=== PATIENT | male | born 1955 | race Caucasian/White ===

== ENCOUNTER 2018-04-12 02:23 | Inpatient (IN) | payer OTHER ==
[2018-04-12 03:35] LABS: ADD MAN DIFF? NO
[2018-04-12] MEDS: FAMOTIDINE 20 MG TAB PO (03:36)
[2018-04-12] MEDS: LIDOCAINE/MYLANTA 40 ML BTL PO (03:36)
[2018-04-12] MEDS: KETOROLAC 15 MG INJ IV (03:36)
[2018-04-12] MEDS: SOD CHLORIDE 0.9% 1,000 ML IV ×2 (03:36→06:37)
[2018-04-12] MEDS: BELLADONNA/PHENOBARBITAL TAB PO (03:36)
[2018-04-12 03:42] LABS: ALANINE AMINOTRANSFERASE 308 IU/L (13-69); ALBUMIN 4.2 g/dl (3.3-4.9); ALBUMIN/GLOBULIN RATIO 1.16; ALKALINE PHOSPHATASE 163 IU/L (42-121); ANION GAP 14 (8-16); ASPARTATE AMINO TRANSFERASE 514 IU/L (15-46); BILIRUBIN,INDIRECT 0.9 mg/dl (0-1.1); BILIRUBIN,TOTAL 1.5 mg/dl (0.2-1.3); BLOOD UREA NITROGEN 10 mg/dl (7-20); CALCIUM 8.9 mg/dl (8.4-10.2); CARBON DIOXIDE 26 mmol/L (21-31); CHLORIDE 108 mmol/L (97-110); CREATININE 0.91 mg/dl (0.61-1.24); GLUCOSE 134 mg/dl (70-220); LIPASE 223 U/L (23-300); POTASSIUM 3.6 mmol/L (3.5-5.1); SODIUM 144 mmol/L (135-144); TOTAL PROTEIN 7.8 g/dl (6.1-8.1)
[2018-04-12 03:55] LABS: TROPONIN-I < 0.012 ng/ml (0.000-0.120)
[2018-04-12 04:08] LABS: BASOPHILS % 0.3 % (0.0-2.0); EOSINOPHILS # 0.1 10^3/ul (0.0-0.5); EOSINOPHILS % 1.2 % (0.0-7.0); HEMATOCRIT 42.7 % (42.0-52.0); HEMOGLOBIN 14.4 g/dl (14.0-18.0); LYMPHOCYTES # 1.8 10^3/ul (0.8-2.9); LYMPHOCYTES % 27.6 % (15.0-51.0); MEAN CORPUSCULAR HEMOGLOBIN 29.9 pg (29.0-33.0); MEAN CORPUSCULAR HGB CONC 33.7 g/dl (32.0-37.0); MEAN CORPUSCULAR VOLUME 88.8 fl (82.0-101.0); MEAN PLATELET VOLUME 9.5 fl (7.4-10.4); MONOCYTE # 0.7 10^3/ul (0.3-0.9); MONOCYTES % 10.9 % (0.0-11.0); NEUTROPHILS % 59.6 % (39.0-77.0); PLATELET COUNT 328 10^3/UL (140-415); RED BLOOD COUNT 4.81 10^6/ul (4.70-6.10); RED CELL DISTRIBUTION WIDTH 12.6 % (11.5-14.5)
[2018-04-12 04:08] LABS: WHITE BLOOD COUNT 6.7 10^3/ul (4.8-10.8)
[2018-04-12] MEDS: PIPER-TAZO 3.375 GM IV (PMX) 100 ML IVPB ×4 (05:18→23:25)
[2018-04-12] MEDS ORDERED: ACETAMINOPHEN 325 MG TAB PO (06:00)
[2018-04-12] MEDS ORDERED: NACL 0.9% 3 ML SYG IV (06:00)
[2018-04-12] MEDS ORDERED: BISACODYL (EC) 5 MG TAB PO (06:00)
[2018-04-12] MEDS ORDERED: DOCUSATE SODIUM 100 MG CAP PO (06:00)
[2018-04-12 06:05] LABS: INR 1.03; PROTIME 13.6 Sec (11.9-14.9); PT RATIO 1.1
[2018-04-12] MEDS ORDERED: PANTOPRAZOLE 40 MG INJ IV (11:00)
[2018-04-12] MEDS: DEXTROSE 5%-0.45% NACL 1,000 ML IV ×2 (11:44→15:10)
[2018-04-12] MEDS: PANTOPRAZOLE 40 MG INJ IV (11:48)
[2018-04-12] MEDS: INDOMETHACIN 50 MG SUPP PR (16:30)
[2018-04-13] MEDS: DEXTROSE 5%-0.45% NACL 1,000 ML IV ×2 (05:58→17:00)
[2018-04-13] MEDS: PANTOPRAZOLE 40 MG INJ IV (05:59)
[2018-04-13] MEDS: PIPER-TAZO 3.375 GM IV (PMX) 100 ML IVPB ×3 (05:59→17:28)
[2018-04-13 06:22] LABS: ADD MAN DIFF? NO
[2018-04-13 06:26] LABS: WHITE BLOOD COUNT 3.5 10^3/ul (4.8-10.8)
[2018-04-13 06:26] LABS: ABNORMAL IP MESSAGE 1; BASOPHIL # 0.1 10^3/ul (0.0-0.1); BASOPHILS % 1.4 % (0.0-2.0); EOSINOPHILS # 0.3 10^3/ul (0.0-0.5); EOSINOPHILS % 8.4 % (0.0-7.0); HEMATOCRIT 39.1 % (42.0-52.0); HEMOGLOBIN 12.9 g/dl (14.0-18.0); LYMPHOCYTES % 58.7 % (15.0-51.0); MEAN CORPUSCULAR HEMOGLOBIN 29.7 pg (29.0-33.0); MEAN CORPUSCULAR VOLUME 89.9 fl (82.0-101.0); MEAN PLATELET VOLUME 9.7 fl (7.4-10.4); MONOCYTE # 0.3 10^3/ul (0.3-0.9); MONOCYTES % 9.8 % (0.0-11.0); NEUTROPHIL # 0.8 10^3/ul (1.6-7.5); NEUTROPHILS % 21.7 % (39.0-77.0); PLATELET COUNT 270 10^3/UL (140-415); POSITIVE DIFF @See below; RED BLOOD COUNT 4.35 10^6/ul (4.70-6.10)
[2018-04-13 06:54] LABS: ALANINE AMINOTRANSFERASE 284 IU/L (13-69); ALBUMIN 3.4 g/dl (3.3-4.9); ALBUMIN/GLOBULIN RATIO 1.21; ANION GAP 11 (8-16); BILIRUBIN,INDIRECT 0.7 mg/dl (0-1.1); BILIRUBIN,TOTAL 0.7 mg/dl (0.2-1.3); BLOOD UREA NITROGEN 5 mg/dl (7-20); CALCIUM 8.6 mg/dl (8.4-10.2); CARBON DIOXIDE 27 mmol/L (21-31); CHLORIDE 110 mmol/L (97-110); CHOL/HDL RATIO 3.3 RATIO; CHOLESTEROL 141 mg/dl (100-200); CREATININE 0.98 mg/dl (0.61-1.24); GLUCOSE 106 mg/dl (70-220); HDL CHOLESTEROL 42 mg/dl (30-78); LDL CHOLESTEROL,CALCULATED 82 mg/dl; SODIUM 144 mmol/L (135-144); TOTAL PROTEIN 6.2 g/dl (6.1-8.1); TRIGLYCERIDES 83 mg/dl (0-149)
[2018-04-13 06:59] LABS: HEMOGLOBIN A1C 6.2 % (0-5.9)
[2018-04-13 06:59] LABS: ALKALINE PHOSPHATASE 142 IU/L (42-121); ASPARTATE AMINO TRANSFERASE 184 IU/L (15-46)
[2018-04-13 07:19] LABS: HEPATITIS B SURFACE ANTIGEN NEGATIVE (NEGATIVE)
[2018-04-13 07:30] LABS: MAGNESIUM 2.6 mg/dl (1.7-2.5)
[2018-04-13 07:36] LABS: HEPATITIS C VIRAL ANTIBODY NEGATIVE (NEGATIVE)
[2018-04-13 07:36] LABS: HEPATITIS B SURFACE ANTIBODY NEGATIVE (NEGATIVE)
[2018-04-13] MEDS: INDOMETHACIN 50 MG SUPP PR (19:30)
[2018-04-13] MEDS ORDERED: MIDAZOLAM 1 MG/ML 2 ML INJ (19:50)
[2018-04-13] MEDS ORDERED: LIDOCAINE 2% (SDV) 5 ML INJ (19:50)
[2018-04-13] MEDS ORDERED: FENTAnyl 50 MCG/ML VIAL (19:50)
[2018-04-13] MEDS ORDERED: PROPOFOL 20 ML (19:50)
[2018-04-13] MEDS ORDERED: GLYCOPYRROLATE 0.4 MG INJ (21:03)
[2018-04-13] MEDS ORDERED: ROCURONIUM 50 MG INJ (21:03)
[2018-04-13] MEDS ORDERED: NEOSTIGMINE 3 MG/3 ML SYRINGE (21:03)
[2018-04-13] MEDS ORDERED: ONDANSETRON 4 MG INJ (21:03)
[2018-04-13] MEDS: HYDROmorphONE 0.5 MG/0.5 ML SYG IV (22:55)
[2018-04-14] MEDS: PIPER-TAZO 3.375 GM IV (PMX) 100 ML IVPB ×4 (00:03→17:29)
[2018-04-14] MEDS: PANTOPRAZOLE 40 MG INJ IV (05:44)
[2018-04-14] MEDS: DEXTROSE 5%-0.45% NACL 1,000 ML IV (05:44)
[2018-04-14 06:29] LABS: ADD MAN DIFF? NO
[2018-04-14 06:39] LABS: BASOPHILS % 0.5 % (0.0-2.0); EOSINOPHILS # 0.2 10^3/ul (0.0-0.5); EOSINOPHILS % 3.3 % (0.0-7.0); HEMATOCRIT 38.2 % (42.0-52.0); HEMOGLOBIN 12.8 g/dl (14.0-18.0); LYMPHOCYTES # 2.2 10^3/ul (0.8-2.9); LYMPHOCYTES % 38.4 % (15.0-51.0); MEAN CORPUSCULAR HGB CONC 33.5 g/dl (32.0-37.0); MEAN CORPUSCULAR VOLUME 89.7 fl (82.0-101.0); MEAN PLATELET VOLUME 9.4 fl (7.4-10.4); MONOCYTE # 0.6 10^3/ul (0.3-0.9); MONOCYTES % 9.8 % (0.0-11.0); NEUTROPHIL # 2.7 10^3/ul (1.6-7.5); NEUTROPHILS % 47.8 % (39.0-77.0); PLATELET COUNT 260 10^3/UL (140-415); RED BLOOD COUNT 4.26 10^6/ul (4.70-6.10); RED CELL DISTRIBUTION WIDTH 12.6 % (11.5-14.5)
[2018-04-14 06:39] LABS: WHITE BLOOD COUNT 5.7 10^3/ul (4.8-10.8)
[2018-04-14 07:04] LABS: MAGNESIUM 2.4 mg/dl (1.7-2.5)
[2018-04-14 07:13] LABS: ALANINE AMINOTRANSFERASE 191 IU/L (13-69); ALBUMIN 3.3 g/dl (3.3-4.9); ALBUMIN/GLOBULIN RATIO 1.32; ALKALINE PHOSPHATASE 114 IU/L (42-121); ANION GAP 15 (8-16); ASPARTATE AMINO TRANSFERASE 71 IU/L (15-46); BILIRUBIN,INDIRECT 0.5 mg/dl (0-1.1); BILIRUBIN,TOTAL 0.5 mg/dl (0.2-1.3); BLOOD UREA NITROGEN 8 mg/dl (7-20); CALCIUM 8.2 mg/dl (8.4-10.2); CARBON DIOXIDE 27 mmol/L (21-31); CHLORIDE 105 mmol/L (97-110); CREATININE 0.99 mg/dl (0.61-1.24); GLUCOSE 120 mg/dl (70-220); POTASSIUM 3.8 mmol/L (3.5-5.1); SODIUM 143 mmol/L (135-144); TOTAL PROTEIN 5.8 g/dl (6.1-8.1)
[2018-04-14] MEDS: HYDROmorphONE 0.5 MG/0.5 ML SYG IV (19:55)
[2018-04-15] MEDS: PIPER-TAZO 3.375 GM IV (PMX) 100 ML IVPB ×4 (00:02→18:23)
[2018-04-15] MEDS: PANTOPRAZOLE 40 MG INJ IV (05:28)
[2018-04-15 06:32] LABS: ADD MAN DIFF? NO
[2018-04-15 06:34] LABS: WHITE BLOOD COUNT 5.2 10^3/ul (4.8-10.8)
[2018-04-15 06:34] LABS: BASOPHILS % 0.6 % (0.0-2.0); EOSINOPHILS # 0.3 10^3/ul (0.0-0.5); EOSINOPHILS % 4.8 % (0.0-7.0); HEMATOCRIT 38.2 % (42.0-52.0); HEMOGLOBIN 12.6 g/dl (14.0-18.0); LYMPHOCYTES # 2.6 10^3/ul (0.8-2.9); LYMPHOCYTES % 49.3 % (15.0-51.0); MEAN CORPUSCULAR HEMOGLOBIN 29.6 pg (29.0-33.0); MEAN CORPUSCULAR VOLUME 89.7 fl (82.0-101.0); MEAN PLATELET VOLUME 9.6 fl (7.4-10.4); MONOCYTE # 0.4 10^3/ul (0.3-0.9); MONOCYTES % 7.5 % (0.0-11.0); NEUTROPHILS % 37.6 % (39.0-77.0); PLATELET COUNT 262 10^3/UL (140-415); RED BLOOD COUNT 4.26 10^6/ul (4.70-6.10); RED CELL DISTRIBUTION WIDTH 12.9 % (11.5-14.5)
[2018-04-15 06:55] LABS: ALANINE AMINOTRANSFERASE 142 IU/L (13-69); ALBUMIN 3.2 g/dl (3.3-4.9); ALBUMIN/GLOBULIN RATIO 1.14; ALKALINE PHOSPHATASE 114 IU/L (42-121); ANION GAP 11 (8-16); ASPARTATE AMINO TRANSFERASE 39 IU/L (15-46); BILIRUBIN,INDIRECT 0.5 mg/dl (0-1.1); BILIRUBIN,TOTAL 0.5 mg/dl (0.2-1.3); BLOOD UREA NITROGEN 6 mg/dl (7-20); CALCIUM 8.8 mg/dl (8.4-10.2); CARBON DIOXIDE 27 mmol/L (21-31); CHLORIDE 109 mmol/L (97-110); CREATININE 1.07 mg/dl (0.61-1.24); GLUCOSE 93 mg/dl (70-220); POTASSIUM 3.9 mmol/L (3.5-5.1); SODIUM 143 mmol/L (135-144)
[2018-04-15 06:59] LABS: MAGNESIUM 2.3 mg/dl (1.7-2.5)
[2018-04-15] MEDS: HYDROmorphONE 0.5 MG/0.5 ML SYG IV (13:00)
[2018-04-16] MEDS: PIPER-TAZO 3.375 GM IV (PMX) 100 ML IVPB ×5 (00:12→23:40)
[2018-04-16] MEDS: PANTOPRAZOLE 40 MG INJ IV (05:29)
[2018-04-16] MEDS ORDERED: LIDOCAINE 2% (SDV) 5 ML INJ (07:00)
[2018-04-16] MEDS ORDERED: DEXAMETHASONE 4 MG/ML 1 ML INJ (07:00)
[2018-04-16] MEDS ORDERED: ONDANSETRON 4 MG INJ (07:00)
[2018-04-16] MEDS ORDERED: PROPOFOL 20 ML (13:16)
[2018-04-16] MEDS ORDERED: ROCURONIUM 50 MG INJ (13:17)
[2018-04-16] MEDS ORDERED: CEFAZOLIN 1 GM INJ (13:18)
[2018-04-16] MEDS ORDERED: LABETALOL HCL 20MG INJ IV (14:00)
[2018-04-16] MEDS ORDERED: MIDAZOLAM 1 MG/ML 2 ML INJ IV (14:00)
[2018-04-16] MEDS ORDERED: KETOROLAC 30 MG INJ IV (14:00)
[2018-04-16] MEDS ORDERED: METOCLOPRAMIDE 10 MG INJ IV (14:00)
[2018-04-16] MEDS ORDERED: MEPERIDINE 25 MG INJ IV (14:00)
[2018-04-16] MEDS ORDERED: ONDANSETRON 4 MG INJ IV ×2 (14:00→16:30)
[2018-04-16] MEDS ORDERED: hydrALAzine 20 MG INJ IV (14:00)
[2018-04-16] MEDS ORDERED: HYDROmorphONE 1 MG/5 ML IV SYRINGE IV (14:00)
[2018-04-16] MEDS ORDERED: DIPHENHYDRAMINE 50 MG INJ IV (14:00)
[2018-04-16] MEDS ORDERED: ALBUTEROL 0.083% (NEB) 2.5 MG/3 ML AMP HHN (14:00)
[2018-04-16] MEDS ORDERED: EPHEDrine SULFATE 50 MG/5 ML SYG IV (14:00)
[2018-04-16] MEDS ORDERED: FENTAnyl 50 MCG/ML VIAL IV ×2 (14:00)
[2018-04-16] MEDS: BUPIVACAINE 0.25%/EPI (SDV) 30 ML INJ (14:46)
[2018-04-16] MEDS: LIDOCAINE 1% (MPF) 30 ML INJ (14:46)
[2018-04-16] MEDS ORDERED: ROPIVACAINE 0.5 % 30 ML VIAL (15:58)
[2018-04-16] MEDS ORDERED: NEOSTIGMINE 3 MG/3 ML SYRINGE (16:13)
[2018-04-16] MEDS ORDERED: GLYCOPYRROLATE 0.4 MG INJ (16:13)
[2018-04-16] MEDS ORDERED: ACETAMINOPHEN 325 MG TAB PO (16:30)
[2018-04-16] MEDS ORDERED: HYDROmorphONE 0.5 MG/0.5 ML SYG IV (16:30)
[2018-04-16] MEDS: HYDROmorphONE 1 MG/5 ML IV SYRINGE IV ×3 (16:40→16:58)
[2018-04-16] MEDS: FENTAnyl 50 MCG/ML VIAL IV ×3 (16:59→18:49)
[2018-04-16] MEDS: HYDROmorphONE 0.5 MG/0.5 ML SYG IV (18:56)
[2018-04-16] MEDS: D5W-0.45 NACL + KCL 20 MEQ 1,000 ML IV (18:57)
[2018-04-17] MEDS: D5W-0.45 NACL + KCL 20 MEQ 1,000 ML IV ×2 (02:00→06:30)
[2018-04-17] MEDS: HYDROmorphONE 0.5 MG/0.5 ML SYG IV (02:52)
[2018-04-17] MEDS: PIPER-TAZO 3.375 GM IV (PMX) 100 ML IVPB (05:33)
[2018-04-17] MEDS: PANTOPRAZOLE 40 MG INJ IV (05:33)
[2018-04-17 06:12] LABS: ADD MAN DIFF? NO
[2018-04-17 06:38] LABS: BASOPHILS % 0.3 % (0.0-2.0); EOSINOPHILS # 0.1 10^3/ul (0.0-0.5); EOSINOPHILS % 0.8 % (0.0-7.0); HEMATOCRIT 36.3 % (42.0-52.0); HEMOGLOBIN 12.2 g/dl (14.0-18.0); LYMPHOCYTES # 1.8 10^3/ul (0.8-2.9); LYMPHOCYTES % 29.2 % (15.0-51.0); MEAN CORPUSCULAR HEMOGLOBIN 30.3 pg (29.0-33.0); MEAN CORPUSCULAR HGB CONC 33.6 g/dl (32.0-37.0); MEAN CORPUSCULAR VOLUME 90.1 fl (82.0-101.0); MEAN PLATELET VOLUME 9.8 fl (7.4-10.4); MONOCYTE # 0.5 10^3/ul (0.3-0.9); MONOCYTES % 8.6 % (0.0-11.0); NEUTROPHIL # 3.8 10^3/ul (1.6-7.5); NEUTROPHILS % 60.9 % (39.0-77.0); PLATELET COUNT 241 10^3/UL (140-415); RED BLOOD COUNT 4.03 10^6/ul (4.70-6.10); RED CELL DISTRIBUTION WIDTH 12.6 % (11.5-14.5)
[2018-04-17 06:38] LABS: WHITE BLOOD COUNT 6.2 10^3/ul (4.8-10.8)
[2018-04-17 07:02] LABS: ALANINE AMINOTRANSFERASE 105 IU/L (13-69); ALBUMIN 3.1 g/dl (3.3-4.9); ALKALINE PHOSPHATASE 93 IU/L (42-121); ANION GAP 11 (8-16); ASPARTATE AMINO TRANSFERASE 50 IU/L (15-46); BILIRUBIN,INDIRECT 0.5 mg/dl (0-1.1); BILIRUBIN,TOTAL 0.5 mg/dl (0.2-1.3); BLOOD UREA NITROGEN 5 mg/dl (7-20); CALCIUM 8.3 mg/dl (8.4-10.2); CARBON DIOXIDE 26 mmol/L (21-31); CHLORIDE 108 mmol/L (97-110); CREATININE 0.96 mg/dl (0.61-1.24); GLUCOSE 168 mg/dl (70-220); POTASSIUM 3.8 mmol/L (3.5-5.1); SODIUM 141 mmol/L (135-144); TOTAL PROTEIN 5.9 g/dl (6.1-8.1)
[2018-04-17] MEDS: IBUPROFEN 600 MG TAB PO (07:47)
[2018-04-17] MEDS: ENOXAPARIN 30 MG/0.3 ML SYG SC (07:48)
[2018-04-17] MEDS: HYDROCODONE/APAP (5/325) TAB PO (11:15)
[2018-04-18 00:08] LABS: ADD MAN DIFF? NO
[2018-04-18] MEDS: IBUPROFEN 600 MG TAB PO (02:20)
[2018-04-18] MEDS: PANTOPRAZOLE 40 MG INJ IV (05:20)
[2018-04-18 06:54] LABS: ALANINE AMINOTRANSFERASE 91 IU/L (13-69); ALBUMIN 3.3 g/dl (3.3-4.9); ALBUMIN/GLOBULIN RATIO 1.06; ALKALINE PHOSPHATASE 106 IU/L (42-121); ANION GAP 11 (8-16); ASPARTATE AMINO TRANSFERASE 41 IU/L (15-46); BILIRUBIN,INDIRECT 0.5 mg/dl (0-1.1); BILIRUBIN,TOTAL 0.5 mg/dl (0.2-1.3); BLOOD UREA NITROGEN 6 mg/dl (7-20); CALCIUM 8.8 mg/dl (8.4-10.2); CARBON DIOXIDE 25 mmol/L (21-31); CHLORIDE 110 mmol/L (97-110); CREATININE 0.82 mg/dl (0.61-1.24); GLUCOSE 110 mg/dl (70-220); SODIUM 142 mmol/L (135-144); TOTAL PROTEIN 6.4 g/dl (6.1-8.1)
[2018-04-18] MEDS: ENOXAPARIN 30 MG/0.3 ML SYG SC (07:48)
[2018-04-19 09:10] LABS: WHITE BLOOD COUNT 9.9 10^3/ul (4.8-10.8)
[2018-04-19 09:10] LABS: BASOPHILS % 0.2 % (0.0-2.0); EOSINOPHILS # 0.2 10^3/ul (0.0-0.5); HEMATOCRIT 40.4 % (42.0-52.0); HEMOGLOBIN 12.6 g/dl (14.0-18.0); LYMPHOCYTES # 2.3 10^3/ul (0.8-2.9); LYMPHOCYTES % 22.9 % (15.0-51.0); MEAN CORPUSCULAR HEMOGLOBIN 29.8 pg (29.0-33.0); MEAN CORPUSCULAR HGB CONC 31.2 g/dl (32.0-37.0); MEAN CORPUSCULAR VOLUME 95.5 fl (82.0-101.0); MEAN PLATELET VOLUME 10.4 fl (7.4-10.4); MONOCYTE # 0.7 10^3/ul (0.3-0.9); MONOCYTES % 6.7 % (0.0-11.0); NEUTROPHIL # 6.7 10^3/ul (1.6-7.5); NEUTROPHILS % 68.1 % (39.0-77.0); PLATELET COUNT 262 10^3/UL (140-415); RED BLOOD COUNT 4.23 10^6/ul (4.70-6.10); RED CELL DISTRIBUTION WIDTH 13.5 % (11.5-14.5)
== END 2018-04-18 13:00 | disposition home or self-care (01) | DRG 419 ==
LOC: E/R 02:23 → MS3 05:14 → PP2 14:50
PROC: 0FC98ZZ Extirpation of Matter from Common Bile Duct, Via Natural or Artificial Opening Endoscopic (ICD-10-PCS; 2018-04-13 17:30)
PROC: 0F798DZ Dilation of Common Bile Duct with Intraluminal Device, Via Natural or Artificial Opening Endoscopic (ICD-10-PCS; 2018-04-13 17:30)
PROC: 0FT44ZZ Resection of Gallbladder, Percutaneous Endoscopic Approach (ICD-10-PCS; principal; 2018-04-13 20:08)
DX: K80.62 Calculus of gallbladder and bile duct with acute cholecystitis without obstruction (principal); D64.9 Anemia, unspecified; F17.200 Nicotine dependence, unspecified, uncomplicated
CPT/HCPCS: 36415; 71045; 74181; 74330; 76705; 80053; 80061; 83036; 83690; 83735; 84443; 84484; 85025; 85610; 86706; 86803; 87340; 88304; 93005; 96361; 96374; 99285-25